=== PATIENT | female | born 1960 | race African-American/Black ===

== ENCOUNTER 2017-03-14 19:14 | Emergency (ER) | payer SELFPAY ==
[~2017-03-14] VITALS: Ht 165.1 cm; Wt 82.0 kg
[~2017-03-14 19:14] MED LIST: ALBU8I INH; PRED20 PO; ZITH250T PO
[2017-03-14 19:15] VITALS: BP 138/86; PULSE 95; RESP 16; TEMP 99.2; O2SAT 97
[2017-03-14] MEDS ORDERED: ASPIRIN 325 MG TAB PO ONE (19:30)
[2017-03-14] MEDS ORDERED: methylPREDNISolone SOD SUCC 125 MG/2 ML VIAL IVP ONE (19:30)
[2017-03-14] MEDS ORDERED: SODIUM CHLORIDE 0.9% FLUSH 10 ML FLUSH IVF PRN (19:30)
[2017-03-14] MEDS: RESP: ALBUTEROL 2.5 MG/3 ML NEB (SCH) INH (19:40)
[2017-03-14 19:43] VITALS: RESP 22
--- NOTE | 2017-03-14 19:48 | RADRPT ---
EXAM DATE/TIME: 03/14/2017 19:29 [place] COMPARISON: No previous studies available for comparison. INDICATIONS : Chest pain, shortness of breath and wheezing. MEDICAL HISTORY : Chronic obstructive pulmonary disease. SURGICAL HISTORY : None. ENCOUNTER: Initial ACUITY: 2 days PAIN SCORE: 7/10 LOCATION: Bilateral chest FINDINGS: A single view of the chest demonstrates the lungs to be symmetrically aerated without evidence of mas s, infiltrate or effusion. The cardiomediastinal contours are unremarkable. Osseous structures are intact. CONCLUSION: No acute disease. Jason Meng MD on March 14, 2017 at 19:47 Board Certified Radiologist. This report was verified electronically.
--- NOTE | 2017-03-14 20:01 | PD ---
HPI Chief Complaint: Chest Pain Time Seen by Provider: 19:58 Travel History International Travel<30 days: No Contact w/Intl Traveler<30days: No Traveled to known affect area: No History of Present Illness HPI 56-year-old female that presents to the ED for evaluation of shortness of breath and chest pain. Patient has had shortness of breath and chest pain for the past 3 days. Per patient is started on Thursday. She does have a history of COPD. Patient caught a "cold" from one of her family members. Per patient she does not use inhalers at home and she ran out of them. Per patient the chest pain gets worse with cough. She states that the cough is nonproductive but she does feel like she has chills and congestion. No nausea or vomiting. No abdominal pain. No bowel movement issues or urinary issue. She has not seen anybody for this. No recent travel. No blood thinner use. No history of heart disease or CHF. PFSH Past Medical History Asthma: Yes Bipolar Disorder: Yes COPD: Yes Diminished Hearing: No GERD: Yes Immunizations Current: Yes Schizophrenia: Yes Tetanus Vaccination: Unknown Influenza Vaccination: No ?: Unknown Tubal Ligation: Yes Past Surgical History Other Surgery: Yes (SKIN GRAFT 2009) Social History Alcohol Use: No Tobacco Use: Yes (4 CIGS/DAY) Substance Use: Yes (RECOVERY) Allergies-Medications (Allergen,Severity, Reaction): Coded Allergies: No Known Allergies (Verified , 09/12/15) Reported Meds & Prescriptions Reported Meds & Active Scripts Active Tamiflu (Oseltamivir Phosphate) 75 Mg Cap 75 Mg PO BID 5 Days Proair Hfa 8.5 GM Inh (Albuterol Sulfate) 90 Mcg/Act Aer 2 Puff INH Q4-6H PRN 108 mcg/actuation Prednisone 20 Mg Tab 20 Mg PO BID Review of Systems Except as stated in HPI: all other systems reviewed are Neg Physical Exam Narrative GENERAL: SKIN: Warm and dry. HEAD: Atraumatic. Normocephalic. EYES: Pupils equal and round. No scleral icterus. No injection or drainage. ENT: No nasal bleeding or discharge. Mucous membranes pink and moist. Tongue is midline. No uvula deviation. NECK: Trachea midline. No JVD. CARDIOVASCULAR: Regular rate and rhythm. No murmurs, S3, S4. RESPIRATORY: No accessory muscle use. Patient has wheezing and rales heard in the lung [place]. Breath sounds equal bilaterally. GASTROINTESTINAL: Abdomen soft, non-tender, nondistended. Hepatic and splenic margins not palpable. MUSCULOSKELETAL: Extremities without clubbing, cyanosis, or edema. No obvious deformities. Full range of motion of the upper and lower extremities bilaterally. 2+ pulses bilaterally. NEUROLOGICAL: Awake and alert. No obvious cranial nerve deficits. Motor grossly within normal limits. Five out of 5 muscle strength in the arms and legs. Normal speech. PSYCHIATRIC: Appropriate mood and affect; insight and judgment normal. Data Data Last Documented VS Vital Signs Date Time Temp Pulse Resp B/P Pulse Ox O2 Delivery O2 Flow Rate FiO2 03/14/17 19:43 97 Room Air 03/14/17 19:43 22 03/14/17 19:15 99.2 95 138/86 Orders Electrocardiogram (03/14/17 ) Basic Metabolic Panel (Bmp) (03/14/17 19:30) Complete Blood Count With Diff (03/14/17 19:30) Chest, Single Ap (03/14/17 19:30) Ecg Monitoring (03/14/17 19:30) Iv Access Insert/Monitor (03/14/17 19:30) Oximetry (03/14/17 19:30) Oxygen Administration (03/14/17 19:30) Methylprednisolone So Succ Inj (Solumedr (03/14/17 19:30) Albuterol Neb (Albuterol Neb) (03/14/17 19:30) Sodium Chloride 0.9% Flush (Ns Flush) (03/14/17 19:30) Troponin I (03/14/17 19:30) Aspirin (Aspirin) (03/14/17 19:30) Influenzae A/B Antigen (03/14/17 19:34) Labs Laboratory Tests Test 03/14/17 19:30 White Blood Count 3.5 TH/MM3 Red Blood Count 4.80 MIL/MM3 Hemoglobin 14.1 GM/DL Hematocrit 42.3 % Mean Corpuscular Volume 88.2 FL Mean Corpuscular Hemoglobin 29.4 PG Mean Corpuscular Hemoglobin 33.3 % Concent Red Cell Distribution Width 13.9 % Platelet Count 129 TH/MM3 Mean Platelet Volume 9.9 FL Neutrophils (%) (Auto) 60.7 % Lymphocytes (%) (Auto) 29.1 % Monocytes (%) (Auto) 9.7 % Eosinophils (%) (Auto) 0.1 % Basophils (%) (Auto) 0.4 % Neutrophils # (Auto) 2.1 TH/MM3 Lymphocytes # (Auto) 1.0 TH/MM3 Monocytes # (Auto) 0.3 TH/MM3 Eosinophils # (Auto) 0.0 TH/MM3 Basophils # (Auto) 0.0 TH/MM3 CBC Comment DIFF FINAL Differential Comment Sodium Level 135 MEQ/L Potassium Level 3.4 MEQ/L Chloride Level 101 MEQ/L Carbon Dioxide Level 26.0 MEQ/L Anion Gap 8 MEQ/L Blood Urea Nitrogen 8 MG/DL Creatinine 0.51 MG/DL Estimat Glomerular Filtration 152 ML/MIN Rate Random Glucose 97 MG/DL Calcium Level 8.6 MG/DL Troponin I LESS THAN 0.02 NG/ML MDM Medical Decision Making Medical Screen Exam Complete: Yes Emergency Medical Condition: Yes Medical Record Reviewed: Yes Interpretation(s) Last Impressions Chest X-Ray 03/14/17 1930 Signed Impressions: Service Date/Time: Thursday, March 14, 2017 19:29 - CONCLUSION: No acute disease. Jason Meng MD CBC & BMP Diagram 03/14/17 19:30 Troponin negative, CK-MB negative. EKG shows sinus rhythm with no sign of acute ischemia or arrhythmia. Read by me and attending. Flu positive Differential Diagnosis COPD exacerbation versus asthma exacerbation versus pneumonia versus chest pain versus atypical chest pain versus ACS Narrative Course 56-year-old female that presents to the ED for evaluation of chest pain and shortness of breath. Patient was properly examined and was found to have signs and symptoms which appear to be very consistent with COPD exacerbation. Labs and imaging ordered. Patient was given breathing treatments and Solu-Medrol. Labs and imaging showed positive for flu. Otherwise negative. Patient did have relief with the Solu-Medrol as well as the intravenous. She will be given one more breathing treatment before going. Case discussed with my attending who agrees with plan. Patient will be given Tamiflu, prednisone, albuterol inhaler. Note for work. Told to take OTC medicines as needed. See ED if worsening symptoms. Diagnosis Primary Impression: Influenza B Additional Impression: COPD with acute exacerbation Patient Instructions: General Instructions Departure Forms: Tests/Procedures, Work Release Enter return to work date: Mar 18, 2017 Additional Instructions: Motrin and Tylenol for pain and fever. You can use [id number] antihistamine as well as well as Mucinex as needed for runny nose and congestion. Cough drops for cough as needed. Drink plenty of fluids. Follow-up with PCP. See ED for worsening symptoms. Med/Other Pt SpecificInfo: Prescription(s) given Scripts Oseltamivir (Tamiflu)75 Mg Cap75 Mg PO BID 5 Days Ref 0 Prov:Samir Lee MD 03/14/17 Albuterol 8.5 GM Inh (Proair Hfa 8.5 GM Inh)90 Mcg/Act Aer2 Puff INH Q4-6H PRN ( SHORTNESS OF BREATH) #1 INHALER 108 mcg/actuation Prov:Samir Lee MD 03/14/17 Prednisone 20 Mg Tab20 Mg PO BID #10 TAB Prov:Samir Lee MD 03/14/17 Disposition: 01 DISCHARGE HOME Condition: Stable Deepak Yang Mar 14, 2017 20:01
[2017-03-14 20:31] LABS: AUTOMATED NEUTROPHIL # 2.1 TH/MM3 (1.8-7.7); BASOPHIL % 0.4 % (0.0-2.0); EOSINOPHIL % 0.1 % (0.0-4.0); HEMATOCRIT 42.3 % (35.0-46.0); HEMO FLAGS DIFF FINAL; LYMPH % 29.1 % (9.0-44.0); MEAN CELL VOLUME 88.2 FL (80.0-100.0); MEAN CORPUSCULAR HEMOGLOBIN 29.4 PG (27.0-34.0); MEAN CORPUSCULAR HGB CONC 33.3 % (32.0-36.0); MONO % 9.7 % (0.0-8.0); NEUT % 60.7 % (16.0-70.0); PLATELET COUNT 129 TH/MM3 (150-450); RED CELL DISTRIBUTION WIDTH 13.9 % (11.6-17.2); WHITE BLOOD COUNT 3.5 TH/MM3 (4.0-11.0)
[2017-03-14 20:35] LABS: ANION GAP 8 MEQ/L (5-15); BLOOD UREA NITROGEN 8 MG/DL (7-18); CHLORIDE 101 MEQ/L (98-107); GLOMERULAR FILTRATION RATE 152 ML/MIN (>89); POTASSIUM 3.4 MEQ/L (3.5-5.1); SODIUM (NA) 135 MEQ/L (136-145)
[2017-03-14] MEDS ORDERED: ALBUAER3 INH (20:51)
[2017-03-14] MEDS ORDERED: PRED20 PO (20:51)
[2017-03-14] MEDS ORDERED: OSEL75 PO (20:51)
[2017-03-14] MEDS ORDERED: RESP: ALBUTEROL 2.5 MG/3 ML NEB (SCH) INH ONE (21:00)
--- NOTE | 2017-03-15 17:25 | EKG ---
Date Performed: 03/14/2017 Time Performed: 19:28:17 PTAGE: 56 years EKG: Sinus rhythm NORMAL ECG Since PREVIOUS TRACING , no significant change noted PREVIOUS TRACIN09/12/2015 13.08 DOCTOR: Dc Kirkland Interpretating Date/Time 03/15/2017 17:24:26
== END 2017-03-14 21:28 | disposition home or self-care (01) ==
LOC: NEPC 19:14
DX: J11.1 Influenza due to unidentified influenza virus with other respiratory manifestations (principal); J44.1 Chronic obstructive pulmonary disease with (acute) exacerbation; J45.909 Unspecified asthma, uncomplicated; F31.9 Bipolar disorder, unspecified; K21.9 Gastro-esophageal reflux disease without esophagitis; F20.9 Schizophrenia, unspecified; F17.210 Nicotine dependence, cigarettes, uncomplicated
CPT/HCPCS: 71010; 80048; 84484; 85025; 87804; 93005; 94640; 94664; 96374; 99285; J2930; J7613